=== PATIENT | female | born 1945 | race Caucasian/White ===

== ENCOUNTER → 2016-06-14 06:29 | Day surgery (SDC) | payer MEDICARE ==
[~2016-06-14 06:29] MED LIST: Buffered Lidocaine 1% SYR 3ML* 3 ML/SYR SYRINGE INTRADERM ONE; Buffered Lidocaine 1% SYR 3ML* 3 ML/SYR SYRINGE ONE; DiMENhydriNATE IV* 50 MG/ML VIAL IV PUSH PRN; Famotidine IV* 10 MG/ML 2 ML (20 mg) IV ONE; Famotidine IV* 10 MG/ML 2 ML (20 mg) ONE; Lidocaine 1% INJ* 10 MG/ML 30 ML SDV ONE; Midazolam* 1 MG/ML 5 ML VIAL (5 MG) ONE; Ondansetron INJ* 2 MG/ML VIAL IV PRN; Propofol* 10 MG/ML 20 ML BTL IV PUSH ONE; ceFAZolin 2 GM PREMIX (*) 2 GM/50 ML BAG IVPB ONE; fentaNYL* 50 MCG/ML 2 ML VIAL (100 MCG VIAL) IV PRN; fentaNYL* 50 MCG/ML 2 ML VIAL (100 MCG VIAL) ONE; oxyCODONE/Acetamin 5/325 MG* TAB PO PRN
--- NOTE | 2016-06-14 09:03 | RAD ---
INDICATION: chest port placement COMPARISONS: None relevant TECHNIQUE: Fluoroscopy was provided for a vascular access procedure. Total fluoroscopy time is: 13.5 seconds FINDINGS: Spot images demonstrate a left-sided chest port with the tip overlying the cavoatrial junction IMPRESSION: FLUOROSCOPY WAS PROVIDED FOR A VASCULAR ACCESS PROCEDURE CPT II Codes: 6045F
[2016-06-14 09:16] VITALS: BP 149/67
--- NOTE | 2016-06-14 09:29 | RAD ---
HISTORY: Status post chest port placement COMPARISONS: January 19, 2011 VIEWS:1: Single frontal portable view of the chest at 8:35 AM FINDINGS: LINES AND TUBES: There is left-sided chest port from a superior approach with the tip overlying the cavoatrial junction CARDIOMEDIASTINAL SILHOUETTE: The cardiomediastinal silhouette is normal for portable technique. PLEURA: The costophrenic angles are sharp. No pleural abnormalities are noted. There is no appreciable pneumothorax. LUNG PARENCHYMA: The lungs are clear. ABDOMEN: The upper abdomen is clear. There is no subphrenic gas. BONES AND SOFT TISSUES: The patient is status post right shoulder arthroplasty IMPRESSION: LINES AND TUBES ABOVE. NO ACTIVE CARDIOPULMONARY DISEASE.
--- NOTE | 2016-06-14 23:13 | OP ---
DATE OF OPERATION: 06/14/16 - [facility] DATE OF : 41 SURGEON: Luis Granado MD STRATEGIC PARTNER DEVELOPMENT MANAGER: None. ANESTHESIOLOGIST: Dr. Mendiola. ANESTHESIA: LMAC anesthesia. PRE-OP DIAGNOSIS: Carcinoma of the lung. POST-OP DIAGNOSIS: Carcinoma of the lung. OPERATIVE PROCEDURE: Placement of left subclavian 8-[place]namese PowerPort. DESCRIPTION OF PROCEDURE: The patient was supine on the operative table. After adequate intravenous sedation, compression stockings, Miguel Hugger warmer, intravenous antibiotics, the left chest and neck region were prepped with antiseptic and draped in a sterile fashion. Local infiltrative anesthesia was administered and approximately a 3-cm subclavian incision was created. Inferior pocket was created. Subclavian venipuncture was carried out without difficulty. Guidewire was passed under fluoroscopic guidance. Catheter was passed through the peel-away introducer, measured and cut at 28 cm, attached to the port, which was sutured into the pocket with 2-0 Prolene. Pocket was closed with 3-0 and 5-0 Polysorb. The port was accessed. There was good blood return. It was flushed with saline solution and heparin solution and then covered with a Tegaderm. She tolerated the procedure well and was brought to recovery in good condition. No complications. No drains. No pathologic specimens. Sponge and instrument counts correct. Estimated blood loss 10 mL. CC: Dr. Granado; Dr. Wai Powell; Dr. Barry Bowens * [id number]/CPS #: [id number] [facility]
== END ==
LOC: OR 06:29
PROVIDERS: ATTEND Surgery
DX: C34.32 Malignant neoplasm of lower lobe, left bronchus or lung (principal); F17.210 Nicotine dependence, cigarettes, uncomplicated; Z85.841 Personal history of malignant neoplasm of brain; Z85.830 Personal history of malignant neoplasm of bone; Z85.820 Personal history of malignant melanoma of skin
CPT/HCPCS: 71010; 96367; 96413; 96417; 99213; C1788; G0463; G8427; J0690; J1100; J1642; J2250; J2469; J2704; J3010; J9045; J9181

== ENCOUNTER 2016-09-01 13:28 | Inpatient (IN) | payer MEDICARE ==
[2016-09-01] MEDS ORDERED: Scopolamine 1.5 mg* PATCH TRANSDERM SCH (14:00)
[2016-09-01] MEDS ORDERED: Acetaminophen TAB* 325 MG PO PRN (14:47)
[2016-09-01] MEDS ORDERED: NS 0.9% 1000 ML* 1,000 ML IV SCH (15:00)
[2016-09-01] MEDS: oxyCODONE TAB* 5 MG TAB PO PRN (15:27)
--- NOTE | 2016-09-01 16:34 | RAD ---
INDICATION: Constipation COMPARISON: CT chest/abdomen/pelvis August 23, 2016 TECHNIQUE: Noncontrast axial source images were acquired from the level hemidiaphragms to the symphysis pubis. The examination was ordered without oral or intravenous contrast which limits evaluation of the solid viscera and bowel. There is a recent contrast enhanced study, however. Lung bases: There are multiple lung masses as described on the recent contrast recent examination. Liver: The liver is normal in size. Noncontrast imaging multiple hepatic masses better evaluated on the recent contrast-enhanced study. Gallbladder: Cholecystectomy. Spleen: The spleen is normal in size. The noncontrast CT appearance is normal. Pancreas: Noncontrast imaging shows no pancreatic mass or ductal dilitation. Adrenal glands: No masses are identified. Kidneys/Bladder: There is a small right renal cyst. There is right-sided hydronephrosis and hydroureter which appears new and may be related to a markedly distended urinary bladder. There is mild dilatation of the left renal collecting system Adenopathy: There is no evidence of intraperitoneal or retroperitoneal adenopathy. Evaluation is limited without oral contrast. Fluid collections: There are no free or localized fluid collections. Vessels: There are atherosclerotic changes of the aorta and iliac vessels. There is no focal aneurysm. The IVC appears normal Pelvic organs: The uterus and adnexa appear normal GI tract: The noncontrast CT appearance of the upper GI tract is unremarkable. There is moderate stool with mild distention of the right and transverse colon. There is a distended stool-filled rectum. Soft tissues: No soft tissue abnormalities of the extraperitoneal abdomen or pelvis are identified. Osseous structures: Extensive osteolytic and osteoblastic metastasis as recently described. IMPRESSION: 1. Large amount of retained stool with distention of the rectal vault. 2. Known metastatic disease to the lungs, liver, and osseous structures. This is recently documented on contrast enhanced imaging. 3. Significant distention of the urinary bladder. If the patient is unable to void a Christy catheter will likely be required. There is hydronephrosis right greater than left which is likely related to the bladder distention.
[2016-09-01] MEDS ORDERED: Warfarin TAB(*) 5 MG PO SCH (17:00)
[2016-09-01] MEDS ORDERED: Diltiazem IV VIAL* 125 MG in D5W 100 ML BAG* 100 ML IV ONE (17:27)
[2016-09-01] MEDS ORDERED: Diltiazem DRIP* 100 MG/100 ML ADDV.BAG IVPB ONE (18:00)
[2016-09-01 19:30] LABS: BUN/Creatinine Ratio 17.3 (8-20); Calcium 7.4 mg/dL (8.6-10.3); EGFR African American 149.1 (>60); EGFR Non-African American 115.9 (>60); Globulin 2.7 g/dL (2-4); Potassium 3.7 mmol/L (3.5-5.0); Total Bilirubin 0.6 mg/dL (0.2-1.0); Total Protein 5.7 g/dL (6.4-8.9)
[2016-09-01] MEDS: Morphine TAB Extended Release (*) 30 MG TAB.ER PO SCH (20:46)
[2016-09-01] MEDS: NS 0.9% 1000 ML* 1,000 ML IV SCH (20:47)
[2016-09-01] MEDS ORDERED: Hemorrhoidal SUPP PR ONE (23:30)
[2016-09-01] MEDS ORDERED: Lidocaine 2% JELLY* 6 ML JELLY TOPICAL ONE (23:30)
[2016-09-02] MEDS: LACTULOSE* 30 ML UDC PO PRN ×2 (00:54→22:04)
[2016-09-02] MEDS: oxyCODONE TAB* 5 MG TAB PO PRN ×2 (00:54→15:03)
[2016-09-02] MEDS: Diltiazem DRIP* 100 MG/100 ML ADDV.BAG IVPB SCH ×3 (01:00→16:11)
[2016-09-02] MEDS: NS 0.9% 1000 ML* 1,000 ML IV SCH ×2 (05:50→18:12)
[2016-09-02 08:10] LABS: BUN/Creatinine Ratio 12.7 (8-20); Calcium 7.2 mg/dL (8.6-10.3); EGFR African American 139.7 (>60); EGFR Non-African American 108.6 (>60); Globulin 2.7 g/dL (2-4); Potassium 3.5 mmol/L (3.5-5.0); Total Bilirubin 0.6 mg/dL (0.2-1.0); Total Protein 5.7 g/dL (6.4-8.9)
[2016-09-02 08:19] LABS: Hematocrit 28 % (35-47); Hemoglobin 9.4 g/dl (12.0-16.0); Mean Corpuscular HGB Conc 34 g/dl (31-36); Mean Corpuscular Hemoglobin 33 pg (27-31); Mean Corpuscular Volume 96 fL (80-97); Mean Platelet Volume 8 um3 (7.4-10.4); Red Blood Count 2.89 10^6/ul (4.0-5.4); Red Cell Distribution Width 19 % (10.5-15); White Blood Count 4.5 10^3/ul (3.5-10.8)
[2016-09-02 08:24] LABS: Comments Flag Yes
[2016-09-02 08:25] LABS: Add Diff/Slide Review? Slide Review Added
[2016-09-02] MEDS: Morphine TAB Extended Release (*) 30 MG TAB.ER PO SCH ×3 (09:12→22:03)
[2016-09-02] MEDS: Docusate CAP* 100 MG PO PRN ×3 (09:14→22:03)
[2016-09-02] MEDS: Dexamethasone TAB* 4 MG PO SCH ×2 (09:14→12:50)
[2016-09-02] MEDS: Senna TAB PO PRN ×3 (09:14→22:03)
[2016-09-02 09:46] LABS: Eosinophils % 1 % (0-6); Immature Granulocytes 7 % (0-9); Metamyelocytes % 5 % (0-2); Myelocytes % 2 % (0-1); Neutrophil % 69 % (38-83)
[2016-09-02 09:47] LABS: Macrocytosis 2+; Microcytosis 1+
[2016-09-02] MEDS ORDERED: Bisacodyl SUPP* 10 MG SUPP PR ONE (11:15)
--- NOTE | 2016-09-02 11:50 | PN ---
Progress Note - Progress Note SOAP: Subjective: [] test note Acetaminophen (Tylenol Tab*) 650 mg PO Q6H PRN PRN Reason: TEMP > 100.5 Dexamethasone (Decadron Tab*) 4 mg PO DAILY [facility] Docusate Sodium (Colace Cap*) 200 mg PO BID PRN PRN Reason: CONSTIPATION Sodium Chloride (Ns 0.9% 1000 Ml*) 1,000 mls @ 80 mls/hr IV PER RATE BONNIE Diltiazem HCl (Cardizem Iv Advan*) 100 mg in 100 mls @ 10 mls/hr IVPB .PER RATE BONNIE; 10 MG/HR PRN Reason: Protocol Lactulose (Lactulose*) 30 ml PO TID PRN PRN Reason: CONSTIPATION Last Admin: 09/02/16 00:54 Dose: 30 ml Lorazepam (Ativan Tab(*)) 0.5 mg PO TID PRN PRN Reason: NAUSEA Methylnaltrexone [place] (Relistor Sq (Nf)) 12 mg SUBCUT ONCE ONE PRN Reason: Protocol Stop: 09/03/16 12:01 Metoprolol Tartrate (Lopressor Tab*) 25 mg PO Q6H [facility] Morphine Sulfate (Ms Contin(*)) 30 mg PO BID BON[facility] Last Admin: 09/01/16 20:46 Dose: 30 mg Oxycodone HCl (Roxycodone Tab*) 5 mg PO Q4H PRN PRN Reason: PAIN Last Admin: 09/02/16 00:54 Dose: 5 mg Pharmacy Profile Note (Scopolomine Patch Remove*) 1 note PATCH OFF Q72H BON[facility]IE Scopolamine (Transderm-Scop 1.5 Mg Patch*) 1 patch TRANSDERM Q72H [facility] Senna (Senokot Tab*) 2 tab PO BID PRN PRN Reason: CONSTIPATION Warfarin Sodium (Coumadin Tab(*)) 5 mg PO DAILY@1700 BONNIE PRN Reason: Protocol Objective: [] Vital Signs Temp Pulse Resp BP Pulse Ox 98.6 F 142 14 96/61 97 09/02/16 07:46 09/02/16 01:00 09/02/16 08:00 09/02/16 08:00 09/02/16 01:00 Assessment: [] dfd Plan: [] zvc
[2016-09-02] MEDS: Metoprolol Tartrate TAB* 25 MG PO SCH ×2 (12:51→18:20)
[2016-09-02] MEDS: LORazepam TAB(*) 0.5 MG PO PRN (15:02)
[2016-09-02] MEDS: Warfarin TAB(*) 5 MG PO SCH (18:20)
--- NOTE | 2016-09-02 18:54 | PN ---
Progress Note - Progress Note SOAP: Subjective: []Doing poorly with continued constipation and abdominal pain. Not eating. Developed rapid a-fib yesterday and placed on Cardizem drip. She is on Coumadin for prior DVT. Acetaminophen (Tylenol Tab*) 650 mg PO Q6H PRN PRN Reason: TEMP > 100.5 Dexamethasone (Decadron Tab*) 4 mg PO DAILY [facility] Last Admin: 09/02/16 12:50 Dose: 4 mg Docusate Sodium (Colace Cap*) 200 mg PO BID PRN PRN Reason: CONSTIPATION Sodium Chloride (Ns 0.9% 1000 Ml*) 1,000 mls @ 80 mls/hr IV PER RATE BONNIE Last Admin: 09/02/16 18:12 Dose: 80 mls/hr Diltiazem HCl (Cardizem Iv Advan*) 100 mg in 100 mls @ 10 mls/hr IVPB .PER RATE BONNIE; 10 MG/HR PRN Reason: Protocol Last Admin: 09/02/16 16:11 Dose: 10 mls/hr Lactulose (Lactulose*) 30 ml PO TID PRN PRN Reason: CONSTIPATION Last Admin: 09/02/16 00:54 Dose: 30 ml Lorazepam (Ativan Tab(*)) 0.5 mg PO TID PRN PRN Reason: NAUSEA Last Admin: 09/02/16 15:02 Dose: 0.5 mg Methylnaltrexone [place] (Relistor Sq (Nf)) 12 mg SUBCUT ONCE ONE PRN Reason: Protocol Stop: 09/03/16 12:01 Metoprolol Tartrate (Lopressor Tab*) 25 mg PO Q6H [facility] Last Admin: 09/02/16 18:20 Dose: 25 mg Morphine Sulfate (Ms Contin(*)) 30 mg PO BID [facility] Last Admin: 09/02/16 12:49 Dose: 30 mg Oxycodone HCl (Roxycodone Tab*) 5 mg PO Q4H PRN PRN Reason: PAIN Last Admin: 09/02/16 15:03 Dose: 5 mg Pharmacy Profile Note (Scopolomine Patch Remove*) 1 note PATCH OFF Q72H [facility] Scopolamine (Transderm-Scop 1.5 Mg Patch*) 1 patch TRANSDERM Q72H [facility] Senna (Senokot Tab*) 2 tab PO BID PRN PRN Reason: CONSTIPATION Last Admin: 09/02/16 12:51 Dose: 1 tab Warfarin Sodium (Coumadin Tab(*)) 5 mg PO DAILY@1700 BONNIE PRN Reason: Protocol Last Admin: 09/02/16 18:20 Dose: 5 mg Objective: [] Vital Signs Temp Pulse Resp BP Pulse Ox 98.6 F 111 16 105/72 94 09/02/16 07:46 09/02/16 14:00 09/02/16 17:03 09/02/16 10:00 09/02/16 14:00 HEENT - pale, no thrush, dry mucosa CTA Tachy and irregular, 110 Distended, has BS, soft but diffuse tenderness. Rectal with rectal tone, soft stool, soft hemorrhoids. 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 Several issues today. Plan: []1. Discussed larger picture. While the CT has been stable, she has had clear clinical deterioration and has suffered from poor quality of life since we started treatment. I think chemotherapy is doing more harm then good and we should stop treatment. The daughter if very resistant, she does not want to give up without a second opinion. Through conversation, she became more open to Hospice and agreed to talk to the family. 2. A-fib. Will start Metoprolol and titrate off Cardizem drip. 3. Constipation. Will continue Lactulose, Fleets and if no BM, add suppository. Order methylmaltrexone for tomorrow.
[2016-09-02] MEDS ORDERED: Metoprolol Tartrate IV* 1 MG/ML 5 ML VIAL IV ONE (19:29)
[2016-09-02] MEDS ORDERED: Gadoteridol* (CONTRAST) 279.3 MG/ML 10 ML IV ONE (20:32)
[2016-09-03] MEDS: Metoprolol Tartrate TAB* 25 MG PO SCH ×5 (00:45→22:50)
[2016-09-03] MEDS: Diltiazem DRIP* 100 MG/100 ML ADDV.BAG IVPB SCH (04:54)
[2016-09-03] MEDS: LORazepam TAB(*) 0.5 MG PO PRN (06:12)
--- NOTE | 2016-09-03 07:32 | RAD ---
HISTORY: Urinary retention, lung cancer COMPARISONS: None TECHNIQUE: The following sequences were obtained of the lumbar spine: Sagittal and axial T1- and T2-weighted images, coronal T2-weighted images, and sagittal STIR images. Additionally, axial and sagittal T1 weighted images were obtained after contrast enhancement with a gadolinium-based intravenous contrast agent.. FINDINGS: SPINAL CORD, CONUS, AND CAUDA EQUINA: There is asymmetric enhancement along the left S1 nerve root best seen on axial image 21 of series 4 and sagittal image 8 series 3 ALIGNMENT: There is a levoscoliotic curvature of the spine VERTEBRAL BODIES: There are numerable enhancing lesions throughout the axial skeleton. The vertebral bodies are preserved in height. There is no significant epidural extension. There is near complete replacement of the S2 vertebral body. The patient appears to be status post laminectomy at L5-S1. JOINTS: There is diffuse facet osteoarthritic change MUSCULATURE: There is fatty atrophy of the caudal extent of the right multifidus muscle. There is mild atrophy of the paraspinal musculature elsewhere INTERVERTEBRAL DISCS: There is diffuse loss of intervertebral disc height and T2 signal throughout the spine. AXIAL IMAGES: T12-L1: There is no disc herniation, spinal stenosis, or neuroforaminal narrowing. L1-L2: There is no disc herniation, spinal stenosis, or neuroforaminal narrowing. L2-L3: There is no disc herniation, spinal stenosis, or neuroforaminal narrowing. L3-L4: There is bilateral facet hypertrophy. There is no significant neural foraminal narrowing or central canal stenosis. L4-L5: There is broad-based disc bulge at bilateral facet hypertrophy. There is moderate bilateral neural foraminal narrowing. There is mild narrowing of central canal. L5-S1: A laminectomy defect is noted. There is no significant neural foraminal narrowing or central canal stenosis. SOFT TISSUES: There are multiple hepatic lesions are seen on coronal images. Renal cysts are noted. OTHER: None. IMPRESSION: 1. THERE ARE IN NUMERABLE ENHANCING LESIONS THROUGHOUT THE AXIAL SKELETON CONSISTENT WITH DIFFUSE OSSEOUS METASTATIC DISEASE. THERE IS NEAR COMPLETE REPLACEMENT OF THE CHEST TUBE VERTEBRAL BODY. THERE IS NO EPIDURAL EXTENSION OR LOSS OF VERTEBRAL BODY HEIGHT . 2. THERE IS ASYMMETRIC ENHANCEMENT OF THE LEFT S1 NERVE ROOT WHICH MAY REFLECT EXTENSION OF TUMOR INTO THE NERVE ROOT. 3. DEGENERATIVE DISC DISEASE AND OSTEOARTHRITIS. THERE IS MILD NARROWING OF THE CENTRAL CANAL AT L4-L5 WITH ASSOCIATED NEURAL FORAMINAL NARROWING. 4. MULTIPLE HEPATIC PARENCHYMAL LESIONS ALSO CONSISTENT WITH METASTATIC DISEASE.
--- NOTE | 2016-09-03 07:36 | RAD ---
HISTORY: Lung cancer, urinary retention COMPARISONS: None TECHNIQUE: The following sequences were obtained of the thoracic spine: Sagittal and axial T1- and T2-weighted images, coronal T2-weighted images, and sagittal STIR images. Additionally, axial and sagittal T1 weighted images were obtained after contrast enhancement with a gadolinium-based intravenous contrast agent.. FINDINGS: Localization is based on counting from C2 SPINAL CORD, CONUS, AND CAUDA EQUINA: The visualized spinal cord, conus, and cauda equina are normal in caliber, position, and signal intensity. ALIGNMENT: The alignment is normal. VERTEBRAL BODIES: There are innumerable enhancing lesions throughout the visualized axial skeleton diffuse osseous metastatic disease. There is no loss of intervertebral body height. There is no epidural extension. There are Modic 2 reactive changes of the midthoracic spine. JOINTS: There is osteoarthritis of the costovertebral articulations. MUSCULATURE: Unremarkable INTERVERTEBRAL DISCS: There is diffuse loss of intervertebral disc height and T2 signal throughout the spine. AXIAL IMAGES: There is no central canal stenosis or neuroforaminal narrowing. SOFT TISSUES: The hepatic parenchymal lesions consistent with metastatic disease to the liver. OTHER: None. IMPRESSION: 1. THERE IS DIFFUSE OSSEOUS METASTATIC DISEASE WITHOUT LOSS OF VERTEBRAL BODY HEIGHT OR EPIDURAL EXTENSION OF TUMOR. 2. DEGENERATIVE DISC DISEASE AND OSTEOARTHRITIS. 3. THERE IS NO SIGNIFICANT NEURAL FORAMINAL NARROWING OR CENTRAL CANAL STENOSIS. 4. THERE ARE ENHANCING LESIONS OF THE LIVER CONSISTENT WITH HEPATIC METASTATIC DISEASE.
[2016-09-03] MEDS: Morphine TAB Extended Release (*) 30 MG TAB.ER PO SCH ×2 (09:40→20:32)
[2016-09-03] MEDS: NS 0.9% 1000 ML* 1,000 ML IV SCH (09:40)
[2016-09-03] MEDS: Dexamethasone TAB* 4 MG PO SCH (09:41)
--- NOTE | 2016-09-03 10:03 | PN ---
Progress Note - Progress Note SOAP: Subjective: []Better. Less pain. Has marte in. Small BM but not much. She is eating some. Acetaminophen (Tylenol Tab*) 650 mg PO Q6H PRN PRN Reason: TEMP > 100.5 Dexamethasone (Decadron Tab*) 4 mg PO DAILY BONN[facility] Last Admin: 09/03/16 09:41 Dose: 4 mg Docusate Sodium (Colace Cap*) 200 mg PO BID PRN PRN Reason: CONSTIPATION Last Admin: 09/02/16 22:03 Dose: 200 mg Sodium Chloride (Ns 0.9% 1000 Ml*) 1,000 mls @ 80 mls/hr IV PER RATE BONNIE Last Admin: 09/03/16 09:40 Dose: 80 mls/hr Diltiazem HCl (Cardizem Iv Advan*) 100 mg in 100 mls @ 10 mls/hr IVPB .PER RATE BONNIE; 10 MG/HR PRN Reason: Protocol Last Admin: 09/03/16 04:54 Dose: 10 mls/hr Lactulose (Lactulose*) 30 ml PO TID PRN PRN Reason: CONSTIPATION Last Admin: 09/02/16 22:04 Dose: 30 ml Lorazepam (Ativan Tab(*)) 0.5 mg PO TID PRN PRN Reason: NAUSEA Last Admin: 09/03/16 06:12 Dose: 0.5 mg Methylnaltrexone [place] (Relistor Sq (Nf)) 12 mg SUBCUT ONCE ONE PRN Reason: Protocol Stop: 09/03/16 12:01 Metoprolol Tartrate (Lopressor Tab*) 25 mg PO Q6H [facility] Last Admin: 09/03/16 06:02 Dose: 25 mg Morphine Sulfate (Ms Contin(*)) 30 mg PO BID BONNIE Last Admin: 09/03/16 09:40 Dose: 30 mg Oxycodone HCl (Roxycodone Tab*) 5 mg PO Q4H PRN PRN Reason: PAIN Last Admin: 09/02/16 15:03 Dose: 5 mg Pharmacy Profile Note (Scopolomine Patch Remove*) 1 note PATCH OFF Q72H BON[facility] Scopolamine (Transderm-Scop 1.5 Mg Patch*) 1 patch TRANSDERM Q72H [facility] Senna (Senokot Tab*) 2 tab PO BID PRN PRN Reason: CONSTIPATION Last Admin: 09/02/16 22:03 Dose: 2 tab Warfarin Sodium (Coumadin Tab(*)) 5 mg PO DAILY@1700 BONNIE PRN Reason: Protocol Last Admin: 09/02/16 18:20 Dose: 5 mg Objective: [] Vital Signs Temp Pulse Resp BP Pulse Ox 98.6 F 99 16 97/64 92 09/03/16 03:58 09/03/16 06:00 09/03/16 09:40 09/03/16 06:00 09/03/16 06:00 HEENT - pale, no thrush, dry mucosa CTA Tachy and irregular, 110 Distended, has BS, soft but diffuse tenderness. Marte, yellow urine. 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 Several issues today. Plan: []1. Discussed larger picture. Family is coming in this weekend. Will work and functional improvment over weekend and see where we are on Tuesday. Family meeting and will discuss hospice. 2. A-fib. Continue Metoprolol, d/c monitor. 3. Constipation. Will continue Lactulose, methylmaltrexone today and follow 4. Discussed DNR.DNI 5. PT/OT
[2016-09-03] MEDS: Scopolamine 1.5 mg* PATCH TRANSDERM SCH (11:53)
[2016-09-03] MEDS ORDERED: Methylnaltrexone SQ (NF) 12 MG/0.6 ML VIAL SUBCUT ONE (12:00)
[2016-09-03] MEDS: Scopolomine PATCH Remove* 1 NOTE MISC PATCH OFF SCH (13:45)
[2016-09-03] MEDS: Warfarin TAB(*) 5 MG PO SCH (16:31)
[2016-09-03] MEDS: Senna TAB PO PRN (20:32)
[2016-09-03] MEDS: Docusate CAP* 100 MG PO PRN (20:32)
[2016-09-03] MEDS: oxyCODONE TAB* 5 MG TAB PO PRN (22:50)
[2016-09-04] MEDS: Metoprolol Tartrate TAB* 25 MG PO SCH ×4 (05:57→23:36)
[2016-09-04 06:29] LABS: Hematocrit 28 % (35-47); Hemoglobin 9.4 g/dl (12.0-16.0); Mean Corpuscular HGB Conc 34 g/dl (31-36); Mean Corpuscular Hemoglobin 32 pg (27-31); Mean Corpuscular Volume 96 fL (80-97); Mean Platelet Volume 8 um3 (7.4-10.4); Red Blood Count 2.94 10^6/ul (4.0-5.4); Red Cell Distribution Width 20 % (10.5-15)
[2016-09-04 06:48] LABS: Add Diff/Slide Review? Slide Review Added; Comments Flag Yes
[2016-09-04 06:51] LABS: Albumin 2.9 g/dL (3.2-5.2); BUN/Creatinine Ratio 16.1 (8-20); Calcium 7.5 mg/dL (8.6-10.3); EGFR African American 136.9 (>60); EGFR Non-African American 106.4 (>60); Globulin 2.7 g/dL (2-4); Potassium 3.9 mmol/L (3.5-5.0); Total Bilirubin 0.4 mg/dL (0.2-1.0); Total Protein 5.6 g/dL (6.4-8.9)
--- NOTE | 2016-09-04 08:12 | PN ---
Progress Note - Progress Note SOAP: Subjective: []Better today. She had BM yesterday after injection. Pain is controlled. Worked with PT and has exercises. She is unsure about if she is accepting palliative care and decided to change back to full code yesterday. Acetaminophen (Tylenol Tab*) 650 mg PO Q6H PRN PRN Reason: TEMP > 100.5 Dexamethasone (Decadron Tab*) 4 mg PO DAILY [facility] Last Admin: 09/03/16 09:41 Dose: 4 mg Docusate Sodium (Colace Cap*) 200 mg PO BID PRN PRN Reason: CONSTIPATION Last Admin: 09/03/16 20:32 Dose: 200 mg Lactulose (Lactulose*) 30 ml PO TID PRN PRN Reason: CONSTIPATION Last Admin: 09/02/16 22:04 Dose: 30 ml Lorazepam (Ativan Tab(*)) 0.5 mg PO TID PRN PRN Reason: NAUSEA Last Admin: 09/03/16 06:12 Dose: 0.5 mg Metoprolol Tartrate (Lopressor Tab*) 25 mg PO Q6H [facility] Last Admin: 09/04/16 05:57 Dose: 25 mg Morphine Sulfate (Ms Contin(*)) 30 mg PO BID [facility] Last Admin: 09/03/16 20:32 Dose: 30 mg Oxycodone HCl (Roxycodone Tab*) 5 mg PO Q4H PRN PRN Reason: PAIN Last Admin: 09/03/16 22:50 Dose: 5 mg Pharmacy Profile Note (Scopolomine Patch Remove*) 1 note PATCH OFF Q72H [facility] Last Admin: 09/03/16 13:45 Dose: Not Given Scopolamine (Transderm-Scop 1.5 Mg Patch*) 1 patch TRANSDERM Q72H [facility] Last Admin: 09/03/16 11:53 Dose: 1 patch Senna (Senokot Tab*) 2 tab PO BID PRN PRN Reason: CONSTIPATION Last Admin: 09/03/16 20:32 Dose: 2 tab Warfarin Sodium (Coumadin Tab(*)) 5 mg PO DAILY@1700 BONNIE PRN Reason: Protocol Last Admin: 09/03/16 16:31 Dose: 5 mg Objective: [] Vital Signs Temp Pulse Resp BP Pulse Ox 98.4 F 107 18 113/67 97 09/04/16 04:07 09/04/16 04:07 09/04/16 06:18 09/04/16 04:07 09/04/16 04:07 HEENT - pale, no thrush, dry mucosa CTA Tachy and irregular, 110 Abd-better and less distended, has BS, soft but diffuse tenderness. Rectal with rectal tone, soft stool, soft hemorrhoids. 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 Plan: []1. SSLC. While the CT has been stable, she has had clear clinical deterioration and has suffered from poor quality of life since we started treatment. I think chemotherapy is doing more harm then good and we should stop treatment. She is still resistant to hospice. Planning family meeting on Tuesday to discuss palliative care. She does not want to be DNR despite explanation of process and poor outcomes from resuscitation. 2. A-fib. Will continue Metoprolol, Digoxin with conservative dose of 0.75 mg today and 0.125 mg daily starting tomorrow. 3. Constipation. Better, continue Lactulose.
[2016-09-04 08:15] LABS: Immature Granulocytes 12 % (0-9); Metamyelocytes % 7 % (0-2); Myelocytes % 1 % (0-1); Neutrophil % 73 % (38-83); Reactive Lymph % 1 % (0-6)
[2016-09-04 08:16] LABS: Polychromasia 1+
[2016-09-04] MEDS: Digoxin TAB* 0.25 MG PO SCH ×2 (08:51→17:17)
[2016-09-04] MEDS: Morphine TAB Extended Release (*) 30 MG TAB.ER PO SCH ×2 (08:51→21:11)
[2016-09-04] MEDS: Dexamethasone TAB* 4 MG PO SCH (08:52)
[2016-09-04] MEDS: Docusate CAP* 100 MG PO PRN ×2 (10:58→21:11)
[2016-09-04] MEDS: Senna TAB PO PRN ×2 (10:58→21:11)
[2016-09-04] MEDS: LACTULOSE* 30 ML UDC PO PRN (14:38)
[2016-09-04] MEDS: LACTULOSE* 30 ML UDC PO SCH ×2 (17:17→21:11)
[2016-09-04] MEDS: Warfarin TAB(*) 5 MG PO SCH (17:18)
[2016-09-04] MEDS: oxyCODONE TAB* 5 MG TAB PO PRN (21:47)
[2016-09-05] MEDS: Digoxin TAB* 0.25 MG PO SCH (01:17)
[2016-09-05] MEDS: Metoprolol Tartrate TAB* 25 MG PO SCH ×3 (06:08→17:13)
[2016-09-05] MEDS: oxyCODONE TAB* 5 MG TAB PO PRN (06:10)
[2016-09-05 06:22] LABS: Hematocrit 32 % (35-47); Hemoglobin 10.8 g/dl (12.0-16.0); Mean Corpuscular HGB Conc 34 g/dl (31-36); Mean Corpuscular Hemoglobin 32 pg (27-31); Mean Corpuscular Volume 96 fL (80-97); Mean Platelet Volume 7 um3 (7.4-10.4); Red Blood Count 3.33 10^6/ul (4.0-5.4); Red Cell Distribution Width 20 % (10.5-15); White Blood Count 11.6 10^3/ul (3.5-10.8)
[2016-09-05 06:38] LABS: BUN/Creatinine Ratio 14.3 (8-20); Calcium 7.5 mg/dL (8.6-10.3); EGFR African American 159.7 (>60); EGFR Non-African American 124.1 (>60); Globulin 3.1 g/dL (2-4); Potassium 3.6 mmol/L (3.5-5.0); Total Bilirubin 0.5 mg/dL (0.2-1.0); Total Protein 6.1 g/dL (6.4-8.9)
[2016-09-05] MEDS: Senna TAB PO PRN (07:49)
[2016-09-05] MEDS: Morphine TAB Extended Release (*) 30 MG TAB.ER PO SCH ×4 (07:49→20:36)
[2016-09-05] MEDS: Docusate CAP* 100 MG PO PRN (07:49)
[2016-09-05] MEDS: Dexamethasone TAB* 4 MG PO SCH (07:50)
[2016-09-05] MEDS: LACTULOSE* 30 ML UDC PO SCH ×4 (07:51→20:42)
--- NOTE | 2016-09-05 08:45 | PN ---
Progress Note - Progress Note SOAP: Subjective: []More pain overnight. Walked around during day and had a good day. Had a BM and felt better. Then overnight more pain. Sever overnight. Today still in pain. Lower back and down leg. Acetaminophen (Tylenol Tab*) 650 mg PO Q6H PRN PRN Reason: TEMP > 100.5 Dexamethasone (Decadron Tab*) 4 mg PO DAILY [facility] Last Admin: 09/05/16 07:50 Dose: 4 mg Digoxin (Lanoxin Tab*) 0.125 mg PO 1700 [facility] Docusate Sodium (Colace Cap*) 200 mg PO BID PRN PRN Reason: CONSTIPATION Last Admin: 09/05/16 07:49 Dose: 200 mg Lactulose (Lactulose*) 30 ml PO TID [facility] Last Admin: 09/05/16 07:51 Dose: 30 ml Lorazepam (Ativan Tab(*)) 0.5 mg PO TID PRN PRN Reason: NAUSEA Last Admin: 09/03/16 06:12 Dose: 0.5 mg Metoprolol Tartrate (Lopressor Tab*) 25 mg PO Q6H [facility] Last Admin: 09/05/16 06:08 Dose: 25 mg Morphine Sulfate (Ms Contin(*)) 30 mg PO BID [facility] Last Admin: 09/05/16 07:49 Dose: 30 mg Oxycodone HCl (Roxycodone Tab*) 5 mg PO Q4H PRN PRN Reason: PAIN Last Admin: 09/05/16 06:10 Dose: 5 mg Pharmacy Profile Note (Scopolomine Patch Remove*) 1 note PATCH OFF Q72H [facility] Last Admin: 09/03/16 13:45 Dose: Not Given Scopolamine (Transderm-Scop 1.5 Mg Patch*) 1 patch TRANSDERM Q72H [facility] Last Admin: 09/03/16 11:53 Dose: 1 patch Senna (Senokot Tab*) 2 tab PO BID PRN PRN Reason: CONSTIPATION Last Admin: 09/05/16 07:49 Dose: 2 tab Warfarin Sodium (Coumadin Tab(*)) 5 mg PO DAILY@1700 BONNIE PRN Reason: Protocol Last Admin: 09/04/16 17:18 Dose: 5 mg Objective: [] Vital Signs Temp Pulse Resp BP Pulse Ox 98.0 F 63 18 140/72 100 09/05/16 08:12 09/05/16 08:12 09/05/16 08:12 09/05/16 08:12 09/05/16 08:12 HEENT - pale, no thrush, dry mucosa CTA Tachy and irregular, 110 Abd-better and less distended, has BS, soft but diffuse tenderness. 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 Now has rate control with Metoprolol and Digoxin. Christy in place and has regular BM on Lactulose. Plan: []1. SSLC. While the CT has been stable, she has had clear clinical deterioration and has suffered from poor quality of life since we started treatment. I think chemotherapy is doing more harm then good and we should stop treatment. She is still resistant to hospice. Planning family meeting tomorrow to discuss palliative care. She does not want to be DNR despite explanation of process and poor outcomes from resuscitation. 2. A-fib. Will continue Metoprolol, Digoxin with conservative dose 0.125 mg daily starting today 3. Constipation. Better, continue Lactulose. 4. Pain. Will increase Morphine ER to 30 mg tid, increase Oxycodone to 10 mg q3 prn.
[2016-09-05] MEDS ORDERED: Ondansetron INJ* 2 MG/ML VIAL ONE (09:46)
[2016-09-05] MEDS ORDERED: Ondansetron INJ* 2 MG/ML VIAL IV PRN (09:53)
[2016-09-05] MEDS: Morphine INJ* 2 MG/ML 1 ML SYRINGE IV PRN (10:53)
[2016-09-05] MEDS: Digoxin TAB* 0.125 MG PO SCH (17:13)
[2016-09-05] MEDS: Warfarin TAB(*) 5 MG PO SCH (17:13)
[2016-09-06] MEDS: Metoprolol Tartrate TAB* 25 MG PO SCH ×4 (00:14→19:21)
[2016-09-06] MEDS: LORazepam TAB(*) 0.5 MG PO PRN (00:15)
[2016-09-06] MEDS: oxyCODONE TAB* 5 MG TAB PO PRN (06:02)
[2016-09-06] MEDS: LACTULOSE* 30 ML UDC PO SCH (08:39)
[2016-09-06] MEDS: Dexamethasone TAB* 4 MG PO SCH (08:40)
[2016-09-06] MEDS: Morphine TAB Extended Release (*) 30 MG TAB.ER PO SCH ×3 (08:40→21:16)
--- NOTE | 2016-09-06 09:52 | PN ---
Progress Note - Progress Note SOAP: Subjective: []Pain better controlled with increased medication. Continues to have BM but is not tolerating Lactulose. Family meeting today. Acetaminophen (Tylenol Tab*) 650 mg PO Q6H PRN PRN Reason: TEMP > 100.5 Dexamethasone (Decadron Tab*) 4 mg PO DAILY [facility] Last Admin: 09/06/16 08:40 Dose: 4 mg Digoxin (Lanoxin Tab*) 0.125 mg PO 1700 [facility] Last Admin: 09/05/16 17:13 Dose: 0.125 mg Docusate Sodium (Colace Cap*) 200 mg PO BID PRN PRN Reason: CONSTIPATION Last Admin: 09/05/16 07:49 Dose: 200 mg Heparin Sodium (Porcine) (Heparin Flush Port (Ivad)) 5 ml FLUSH DAILY [facility] PRN Reason: Protocol Lactulose (Lactulose*) 30 ml PO TID [facility] Last Admin: 09/06/16 08:39 Dose: 30 ml Lorazepam (Ativan Tab(*)) 0.5 mg PO TID PRN PRN Reason: NAUSEA Last Admin: 09/06/16 00:15 Dose: 0.5 mg Metoprolol Tartrate (Lopressor Tab*) 25 mg PO Q6H [facility] Last Admin: 09/06/16 06:02 Dose: 25 mg Morphine Sulfate (Ms Contin(*)) 30 mg PO TID [facility] Last Admin: 09/06/16 08:40 Dose: 30 mg Morphine Sulfate (Morphine Inj (Syringe)*) 2 mg IV Q3H PRN PRN Reason: PAIN Last Admin: 09/05/16 10:53 Dose: 2 mg Ondansetron HCl (Zofran Inj*) 8 mg IV Q8H PRN PRN Reason: NAUSEA Last Admin: 09/05/16 10:01 Dose: 8 mg Oxycodone HCl (Roxycodone Tab*) 10 mg PO Q3H PRN PRN Reason: PAIN Last Admin: 09/06/16 06:02 Dose: 10 mg Pharmacy Profile Note (Scopolomine Patch Remove*) 1 note PATCH OFF Q72H [facility] Last Admin: 09/03/16 13:45 Dose: Not Given Scopolamine (Transderm-Scop 1.5 Mg Patch*) 1 patch TRANSDERM Q72H [facility] Last Admin: 09/03/16 11:53 Dose: 1 patch Senna (Senokot Tab*) 2 tab PO BID PRN PRN Reason: CONSTIPATION Last Admin: 09/05/16 07:49 Dose: 2 tab Warfarin Sodium (Coumadin Tab(*)) 5 mg PO DAILY@1700 [facility] PRN Reason: Protocol Last Admin: 09/05/16 17:13 Dose: 5 mg Objective: [] Vital Signs Temp Pulse Resp BP Pulse Ox 98.4 F 108 18 119/67 100 09/06/16 08:07 09/06/16 08:07 09/06/16 08:40 09/06/16 08:07 09/06/16 08:07 HEENT - mucosa moist, no lesions Crackles at bases, no distress, no wheezing Heart is irregular at 100-110 +BS, NT and ND Ext w/o c/c/e Assessment: []70 year old with SSLC who is status post cycle 2 of second line chemotherapy with Topotecan. No response. Family meeting today and covered following points: - Cancer has not responded to 2 consecutive chemotherapy regimens. I feel chemotherapy is doing more harm then good and she should have further aggressive treatment for her cancer. - Radiation to disease in spine is reasonable, will consider short, 2-3 day course of treatment - Recommend Hospice services. Discussed role of hospice, home services and that she will from her cancer. - Alternative therapy is an options, will try and connect family with local resources. Can be done while on hospice. - Will try and keep bowls moving without Lactulose, keep lactulose as reserve medication. Plan: []1. Will change Lactulose to TID PRN and start Biscodyl 10 mg bid, Senna 2 tabs bid. 2. Maintain Christy for urinary retention. 3. Consultation to Dr. Smith for XRT 4. Hospice consult 5. Will consult social work for guidance regarding alternative therapy. 6. They are considering consolation with [facility]. Would need to be done off hospice. In my opinion there is little incremental benefit to be gained. However, I am happy to arrange if the family feels another perspective will be helpful. 7. Have discussed DNR in the past and she has a hard time becoming comfortable, differed today but will come back to discussion. 9. A-fib. Continue metoprolol and Digoxin time 09:10 - 10:00 with patient and chart
[2016-09-06] MEDS: Docusate CAP* 100 MG PO SCH ×2 (10:50→21:16)
[2016-09-06] MEDS: Senna TAB PO SCH ×2 (10:50→21:16)
[2016-09-06] MEDS: Scopolamine 1.5 mg* PATCH TRANSDERM SCH (13:02)
[2016-09-06] MEDS: Scopolomine PATCH Remove* 1 NOTE MISC PATCH OFF SCH (13:02)
[2016-09-06] MEDS: Digoxin TAB* 0.125 MG PO SCH (16:51)
[2016-09-06] MEDS: Warfarin TAB(*) 5 MG PO SCH (16:51)
[2016-09-06] MEDS: LACTULOSE* 30 ML UDC PO PRN (21:16)
[2016-09-06] MEDS: Bisacodyl EC TAB* 5 MG PO SCH (21:16)
--- NOTE | 2016-09-06 22:34 | CONS ---
PALLIATIVE CARE CONSULTATION: DATE OF CONSULT: 09/06/16 PRIMARY CARE PHYSICIAN: Wai Powell MD REFERRING PHYSICIAN FOR CONSULTATION: Wai Powell MD HOSPITAL COURSE: This is a 70-year-old female with a past medical history of small cell lung cancer diagnosed in 2015 with metastasis to brain, liver, and multiple lytic bone lesions. The patient has undergone chemotherapy. She presented to the hospital on the with complaints of abdominal pain, constipation, and she was admitted to the Oncology service. On admission, the patient had an abdominal pelvis CT, which showed a large amount of retained stool with distention of the rectal vault. No metastatic disease to the lungs, liver, and osseous structures, significant distention of the urinary bladder, the hydronephrosis is right greater than the left which is likely related to bladder distention. Lumbar spine MRI: There are numerable enhancing lesions throughout the axial skeleton consistent with diffuse osseous metastatic disease. There is near complete replacement of the chest tube, vertebral body. There is no epidural extension or loss of vertebral body height. There is asymmetric enhancement of the left S1 nerve root, which may reflect extension of tumor into the nerve root, degenerative disk, and osteoarthritis. There is mild narrowing of the central canal at L4-L5 with associated neural foraminal narrowing. Multiple hepatic parenchymal lesions, also consistent with metastatic disease. The patient is getting an aggressive bowel regimen. On my encounter, her son and daughter are there and she is resting comfortably. They know with Dr. Powell earlier discussing goals of care. He did speak with them regarding hospice eligibility and a chemotherapy and seemed to be doing more harm than good and recommended hospice and he felt that her life expectancy was about 2 months. The family and the children want to respect what she wants and they are afraid to commit the hospice without getting a second opinion. They want to travel to [place] to get the second opinion. When speaking with the patient, it is very hard to get a clear understanding what she would want because she wants to be home. When discussing her code status, which has been another issue, she expresses that she does not want to be resuscitated, but the brace on her arm with a DNR on it, it caused a lot of anxiety to her. We discussed putting a sign outside the door, so it would not be visible. I discussed her poor prognosis and the limited chance of survival with being resuscitated and she does not want to go through with this, but is afraid to commit without discussing more with her . The patient is complaining of low back pain. She is fatigued. She is able to ambulate with a walker. She has had some nausea with a decrease in appetite. She denies any shortness of breath and as mentioned she has been having issues with constipation and urinary retention, otherwise remaining review of systems is negative. The patient is planning to meet with Dr. Smith today at 4 to discuss palliative radiation to the spine for pain control. PAST MEDICAL HISTORY: 1. 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 2. Atrial fibrillation. 3. History of gallstones. 4. Hyperlipidemia. 5. History of parathyroid cancer. 6. History of melanoma. 7. Constipation. 8. Chronic pain. 9. Nausea. 10. History of a DVT. MEDICATIONS: 1. Tylenol 650 mg every 6 hours as needed. 2. Bisacodyl 10 mg p.o. b.i.d. 3. Dexamethasone 4 mg p.o. daily. 4. Digoxin 0.125 mg daily. 5. Colace 100 mg p.o. b.i.d. 6. Lorazepam 0.5 mg p.o. t.i.d. as needed. 7. Lactulose p.o. t.i.d. p.r.n. 8. Metoprolol tartrate 25 mg p.o. q.6 hours. 9. Morphine 2 mg q.3 hours as needed. 10. Morphine extended release 30 mg p.o. t.i.d. 11. Zofran 8 mg every 8 hours. 12. Scopolamine patch. 13. Senna 2 tabs p.o. b.i.d. 14. Warfarin 5 mg daily. 15. Oxycodone 10 mg q.3 hours as needed. ALLERGIES: TETRACYCLINE, to help the rash. FAMILY HISTORY: No history of cancer. SOCIAL HISTORY: She lives at home with her who is her primary health care proxy. Her daughter is her secondary proxy. She has 4 grown children who have routinely taking care of her and coming to stay with her for 3 weeks at a time. The patient was initially DNR/DNI, but now has retracted that as a full code at this time until further discussion with her . She has a 50-pack year smoking history. No alcohol. REVIEW OF SYSTEMS: As mentioned in the HPI. PHYSICAL EXAM: Vital signs: Temp 98.7, pulse rate 118, respiratory rate 18, oxygen saturation 90% on room air, and blood pressure 122/58. General: A frail female, in no acute distress with her son and daughter at the bedside. HEENT: Pupils are equal and reactive. Anicteric. Head is normocephalic. Neck : Supple. No lymphadenopathy. Cardiac: Tachycardia. Irregularly irregular rate and rhythm. Soft systolic murmur. Respiratory: Poor aeration. Prolonged expiratory phase. No wheezes, rhonchi, or rales. Abdomen: Soft, mild distention. Extremities: No clubbing, cyanosis, or edema. Neurologic: Alert and oriented x3. No gross focal neurologic deficits. DIAGNOSTIC STUDIES/LAB DATA: White count on 11.6, hemoglobin 10.8, hematocrit 32, and platelets 526. INR 2.6. Sodium 136, potassium 3.6, chloride 101, bicarb 27, BUN 7, and creatinine 0.49. ASSESSMENT: This is a 70-year-old female with a past medical history of small cell lung cancer with metastasis to the brain, liver, and bone who presents to the hospital with urinary retention and constipation. In discussion with oncology, there is no other treatment options that would not further impair her quality of life. There was discussion of palliative radiation for her lytic bone lesions, which the patient and the family are meeting with Dr. Smith today. The family is hesitant to commit the hospice without getting a second opinion regarding further treatment options. They are interested in travelling to [place]. They want to see if it is possible for Dr. Powell to call another oncologist to discuss this to avoid a trip, but they are willing to travel. The patient seems to be willing to travel as well, although the patient seems to be aware of everything going on; however, I am concerned about the limited capacity, decision making that she has. She has a hard time articulating her wants and needs at this time. As it stands, her MOLST form is currently a full code. They are going to talk to the again and make sure that they want her to be a DNR/DNI. We discussed this at length. PATIENT TIME: More than 90 minutes was spent doing this consultation, more than half the time was spent in direct patient contact. Thank you for this consultation. I will follow along with you. CC: Wai Powell MD; Barry Bowens MD * [id number]/[facility] #: [id number] MTDD
[2016-09-07] MEDS: Metoprolol Tartrate TAB* 25 MG PO SCH ×5 (00:30→23:50)
[2016-09-07] MEDS: Senna TAB PO SCH ×2 (09:50→22:03)
[2016-09-07] MEDS: Docusate CAP* 100 MG PO SCH ×2 (09:50→22:06)
[2016-09-07] MEDS: Dexamethasone TAB* 4 MG PO SCH (09:51)
[2016-09-07] MEDS: Morphine TAB Extended Release (*) 30 MG TAB.ER PO SCH ×3 (09:51→21:59)
[2016-09-07] MEDS: Bisacodyl EC TAB* 5 MG PO SCH ×2 (09:55→22:19)
--- NOTE | 2016-09-07 13:06 | RAD ---
Indication: Lumbar spine metastases. CT of the spine and pelvis was performed for radiation therapy planning. Multiple lytic lesions are present throughout. Christy catheter is in place. IMPRESSION: CT of the lumbar spine and pelvis performed for radiation therapy planning.
[2016-09-07] MEDS: Morphine INJ* 2 MG/ML 1 ML SYRINGE IV PRN (15:24)
--- NOTE | 2016-09-07 16:17 | PN ---
Progress Note - Progress Note SOAP: Subjective: []Family requested meeting to discuss issues addressed this AM including hospice , question of second opinion at [facility] ([place]), radiation, and code status. Earnestine states lots of pain with CT simulation for RT - hard to lay on table. Pt. and family worried about travel and pain. Medications: Acetaminophen (Tylenol Tab*) 650 mg PO Q6H PRN PRN Reason: TEMP > 100.5 Bisacodyl (Dulcolax Ec Tab*) 10 mg PO BID [facility] Last Admin: 09/07/16 09:55 Dose: Not Given Dexamethasone (Decadron Tab*) 4 mg PO DAILY [facility] Last Admin: 09/07/16 09:51 Dose: 4 mg Digoxin (Lanoxin Tab*) 0.125 mg PO 1700 [facility] Last Admin: 09/06/16 16:51 Dose: 0.125 mg Docusate Sodium (Colace Cap*) 100 mg PO BID [facility] Last Admin: 09/07/16 09:50 Dose: 100 mg Heparin Sodium (Porcine) (Heparin Flush Port (Ivad)) 5 ml FLUSH DAILY [facility] PRN Reason: Protocol Last Admin: 09/07/16 09:51 Dose: 5 ml Lactulose (Lactulose*) 30 ml PO TID PRN PRN Reason: CONSTIPATION Last Admin: 09/06/16 21:16 Dose: 30 ml Lorazepam (Ativan Tab(*)) 0.5 mg PO TID PRN PRN Reason: NAUSEA Last Admin: 09/06/16 00:15 Dose: 0.5 mg Metoprolol Tartrate (Lopressor Tab*) 25 mg PO Q6H [facility] Last Admin: 09/07/16 15:21 Dose: 25 mg Morphine Sulfate (Ms Contin(*)) 30 mg PO TID [facility] Last Admin: 09/07/16 15:22 Dose: 30 mg Morphine Sulfate (Morphine Inj (Syringe)*) 2 mg IV Q3H PRN PRN Reason: PAIN Last Admin: 09/07/16 15:24 Dose: 2 mg Ondansetron HCl (Zofran Inj*) 8 mg IV Q8H PRN PRN Reason: NAUSEA Last Admin: 09/05/16 10:01 Dose: 8 mg Oxycodone HCl (Roxycodone Tab*) 10 mg PO Q3H PRN PRN Reason: PAIN Last Admin: 09/06/16 06:02 Dose: 10 mg Pharmacy Profile Note (Scopolomine Patch Remove*) 1 note PATCH OFF Q72H [facility] Last Admin: 09/06/16 13:02 Dose: 1 patch Scopolamine (Transderm-Scop 1.5 Mg Patch*) 1 patch TRANSDERM Q72H [facility] Last Admin: 09/06/16 13:02 Dose: 1 patch Senna (Senokot Tab*) 2 tab PO BID [facility] Last Admin: 09/07/16 09:50 Dose: 2 tab Warfarin Sodium (Coumadin Tab(*)) 5 mg PO DAILY@1700 [facility] PRN Reason: Protocol Last Admin: 09/06/16 16:51 Dose: 5 mg Objective: [] Vital Signs Temp Pulse Resp BP Pulse Ox 98.2 F 101 17 109/74 96 09/07/16 15:39 09/07/16 15:39 09/07/16 15:39 09/07/16 15:39 09/07/16 15:39 A&Ox3, slow to respond at times but very involved in conversation and decision making Somewhat uncomfortable sitting upright at side of bed and frequently changes position Full assessment deferred d/t counseling nature of visit Assessment/Plan: []70 yo with metastatic small cell lung cancer progressed through second line therapy and complicated by obstipation and urinary retention. Her performance status has declined over the last several weeks and decision was made earlier today to pursue palliative RT to spine and then transition to hospice at home. Unfortunately she struggled with her simulation, therefore we will delay discharge in order to provide IV pain meds prior to her radiation treatment every day. Following 4th dose on Sunday 09/10 AM she will be d/c'd home with plan for hospice sign on. In regards to the request for a second opinion, my biggest concern is Earnestine's comfort, however the family states they would like her records sent to [facility] where they will be reviewed for potential options. Earnestine signed a release and our office initiated that process today. In regards to her code status I spent a significant amount of time reviewing the recommendation for hospice, goals of therapy, and my concerns that with her current burden of disease, while I think it is unlikely, she may decline rapidly. Both Earnestine and her family had multiple questions regarding specifics about DNR/DNI as well as the dying process, all were answered to the best of my ability. Following counseling Earnestine requested DNR/DNI and the family was supportive of this. MOLST form was completed and signed by . >40 min visit with >50% face to face counseling []
[2016-09-07] MEDS: Digoxin TAB* 0.125 MG PO SCH (17:54)
[2016-09-07] MEDS: Warfarin TAB(*) 5 MG PO SCH (17:55)
--- NOTE | 2016-09-07 23:22 | DS ---
DISCHARGE SUMMARY: DATE OF ADMISSION: 09/01/16 DATE OF DISCHARGE: 09/07/16 ATTENDING PHYSICIAN: Mike Madera MD (dictated by Nikky Bailon NP) DISCHARGE DIAGNOSES: 1. Metastatic small cell lung cancer: Progressive thorough 2 lines of chemotherapy with extensive disease burden, plan for palliative radiation and then hospice. 2. Confusion: Likely related to disease burden, no further intervention at this time. 3. Atrial fibrillation: Stable with metoprolol and digoxin. DISCHARGE MEDICATIONS: 1. Acetaminophen 650 mg p.o. q.6 hours p.r.n. temp or pain. 2. Bisacodyl 10 mg p.o. b.i.d. p.r.n. constipation. 3. Morphine oral concentrate 20 mg/mL, 5 mg p.o. q.2 hours p.r.n. pain or shortness of breath. 4. Docusate sodium 200 mg p.o. b.i.d. p.r.n. constipation. 5. Warfarin 5 mg p.o. daily. 6. Lactulose 30 mL p.o. t.i.d. p.r.n. constipation. 7. Dexamethasone 4 mg p.o. daily. 8. Scopolamine patch 1.5 mg transdermally q.72 hours. 9. Morphine sulfate ER 30 mg p.o. b.i.d. 10. Senna 2 tabs p.o. b.i.d. p.r.n. constipation. 11. Zofran 4 mg p.o. q. 4 hours p.r.n. nausea. 12. Digoxin 0.125 mg p.o. q.5 p.m. 13. Metoprolol 25 mg p.o. q.6 hours. 14. Lorazepam 0.5 mg p.o. q.4 hours p.r.n. anxiety, agitation or nausea. HOSPITAL COURSE: Please see admission note for full H and P; however, briefly, Ms. Grimes is well known to our service due to her unfortunate diagnosis of small cell lung cancer diagnosed as metastatic in December 2015, with known BIOTECHNOLOGIST and bone involvement. In May 2016, she initiated chemotherapy complicated by DVT and unfortunately progressive BIOTECHNOLOGIST disease in July, transitioning to topotecan most recently on 07/26/16. Ms. Grimes was seen in our office on with severe constipation and concern for neurogenic bladder. She was admitted for workup including MRI of her spine and an abdomen and pelvis CT. Subsequent workup revealed extensive metastatic disease, concerning for progressive through recent transition of therapy. Unfortunately, while the disease is essentially stable in the organs, concern was for poor quality of life on therapy and consideration of hospice was discussed earlier on in the admission starting initially with Dr. Powell, the patient's primary oncologist, on 09/02/16. Subsequently, Earnestine has suffered from continued back pain and plan has been made to evaluate for radiation to her spine. Dr. Smith saw the patient today in consideration of a short course over 4 days. In terms of constipation, she has improved with lactulose and [address] Jha consulted with the family on 09/06/16; however, at that time the family was still considering a second opinion and concern for consideration of further lines of therapy. Today in discussion, the patient is involved in the plan of care and the family and patient agree that she would like to pursue radiation for pain control and subsequently sign on to hospice. The patient very much wants to go home, therefore, I coordinated with case management and social work for discharge this afternoon following initiation of radiation. She will receive daily radiation through 09/10/16. We will plan to sign on to hospice on Tuesday afternoon, pending approval which is currently in process. Plan of care was discussed with the family at length. TIME SPENT: Greater than 40 minutes spent with greater than 50% [id number] counseling. NIKKY BAILON NP CC: Barry Bowens MD; Dr. Trejo* [id number]/[facility] #: [id number] CHLOE
--- NOTE | 2016-09-08 03:48 | RADMED ---
RADIATION ONCOLOGY INPATIENT CONSULTATION NOTE: DATE OF SERVICE: 09/06/16 REFERRING PHYSICIAN: Wai Powell MD DIAGNOSIS: Metastatic small cell lung cancer, AJCC stage IV. HISTORY OF PRESENT ILLNESS: Earnestine Grimes is a 70-year-old woman with smoking history, who underwent low-dose CT screening, initially a low-risk pulmonary nodule was identified, but on subsequent followup, she was found to have increase in the right lung tumor and metastatic liver disease, which was confirmed on biopsy 06/04/16. She received systemic therapy with carboplatin and etoposide and subsequently with topotecan most recently, and presents with low back pain, obstipation, and urinary retention, restaging imaging shows widespread metastatic malignancy; brain metastasis, small and stable; extensive disease in the lumbosacral spine; and very widespread bony disease, and she is referred for consideration of palliative radiation therapy versus hospice. PAST MEDICAL HISTORY: Metastatic small cell lung cancer, history of atrial fibrillation, hyperlipidemia, melanoma, DVT, and parathyroid tumor. MEDICATIONS: 1. Tylenol. 2. Dulcolax. 3. Decadron. 4. Digoxin. 5. Colace. 6. Heparin. 7. Lactulose. 8. Ativan. 9. Lopressor. 10. MS Contin. 11. Morphine. 12. Zofran. 13. Oxycodone. 14. Scopolamine. 15. Senna. 16. Coumadin. ALLERGIES: TETRACYCLINE. FAMILY HISTORY: Denies malignancy. SOCIAL HISTORY: She is . She is accompanied today by 2 supportive children. She has been a smoker. PHYSICAL EXAM: Vital Signs: Temperature 98.1, pulse rate 111, respiratory rate 14, oxygen saturation 93%, and blood pressure 96/56. General: She is disoriented and confused, and the majority of history comes from her children who have noted waxing and waning acuity and mental status. HEENT: Normocephalic, atraumatic. Sclerae are anicteric. Neck: Supple. Full range of motion. Midline trachea. No mass palpable in the neck. Lungs: Symmetric air entry. Cardiovascular: S1, S2. Abdomen: Mildly tender. Extremities: No peripheral edema. Musculoskeletal: Mild tenderness to palpation over the lower lumbar spine and sacrum. PATHOLOGY AND RADIOLOGY: Reviewed as in the history of present illness. ASSESSMENT AND PLAN: Earnestine Grimes is a 70-year-old woman with progressive small cell lung cancer, admitted for pain control, primarily related to extensive disease in the lumbosacral spine. I did review her history as well as pathologic and radiographic findings, discussed at some length with the patient and her family, as they are already well informed and familiar. They have also had consultation for consideration of hospice services, and understand that that is an option either now, or following a short course of palliative radiation therapy to the spine. With regard to that treatment, I reviewed the logistics and rationale, risks, benefits, and alternatives as well as the acute and long-term frequent and uncommon toxicities. Her disease extent is significant with involvement of most of the visualized bones on her scans. Designing a palliative treatment that is likely to provide meaningful pain control, but would only deliver radiation to limited normal tissues to reduce side effects could be a challenge. Typically in that situation, fractionation as opposed to single fraction palliation may pose less risk of side effects in my experience. Her main priority right now is getting out of the hospital. I offered simulation and treatment planning and short-course radiation, which could be completed by the end of the week versus single fraction palliation, which would likely be to a more limited field, and perhaps less likely to help with pain problems, but would be more expeditious. I also frankly explained that radiation therapy being a localized treatment is unlikely to affect the overall trajectory of her disease, and proceeding to hospice without radiation would not be unreasonable. They would like some time to think and consider options, and I will follow up with them in the morning. Thank you for giving me the opportunity to participate in the care of this very pleasant patient. ADDENDUM: After further discussion, she is interested to proceed with palliative radiation therapy and did sign informed consent. Will proceed as soon as possible. [id number]/[facility] #: [id number] [facility]
[2016-09-08] MEDS: Metoprolol Tartrate TAB* 25 MG PO SCH ×4 (05:44→23:07)
[2016-09-08] MEDS: Morphine TAB Extended Release (*) 30 MG TAB.ER PO SCH ×3 (07:31→20:31)
[2016-09-08] MEDS: Docusate CAP* 100 MG PO SCH ×2 (07:32→20:31)
[2016-09-08] MEDS: Morphine INJ* 2 MG/ML 1 ML SYRINGE IV PRN (07:32)
[2016-09-08] MEDS: Bisacodyl EC TAB* 5 MG PO SCH ×3 (09:25→20:30)
[2016-09-08] MEDS: Senna TAB PO SCH ×2 (09:34→20:31)
[2016-09-08] MEDS: Dexamethasone TAB* 4 MG PO SCH (09:34)
--- NOTE | 2016-09-08 12:40 | PN ---
Progress Note - Progress Note SOAP: Subjective: []Feeling OK this AM. Pain was well controlled with IV morphine during RT this AM. No HAs and denies severe abd. pain. Didn't have a good night again, fell asleep but then was woken up and couldn't get back to bed. Medications: Acetaminophen (Tylenol Tab*) 650 mg PO Q6H PRN PRN Reason: TEMP > 100.5 Bisacodyl (Dulcolax Ec Tab*) 10 mg PO BID [facility] Last Admin: 09/08/16 09:25 Dose: Not Given Dexamethasone (Decadron Tab*) 4 mg PO DAILY [facility] Last Admin: 09/08/16 09:34 Dose: 4 mg Digoxin (Lanoxin Tab*) 0.125 mg PO 1700 [facility] Last Admin: 09/07/16 17:54 Dose: 0.125 mg Docusate Sodium (Colace Cap*) 100 mg PO BID [facility] Last Admin: 09/08/16 07:32 Dose: 100 mg Heparin Sodium (Porcine) (Heparin Flush Port (Ivad)) 5 ml FLUSH DAILY [facility] PRN Reason: Protocol Last Admin: 09/08/16 07:32 Dose: 5 ml Lactulose (Lactulose*) 30 ml PO TID PRN PRN Reason: CONSTIPATION Last Admin: 09/06/16 21:16 Dose: 30 ml Lorazepam (Ativan Tab(*)) 0.5 mg PO TID PRN PRN Reason: NAUSEA Last Admin: 09/06/16 00:15 Dose: 0.5 mg Metoprolol Tartrate (Lopressor Tab*) 25 mg PO Q6H [facility] Last Admin: 09/08/16 05:44 Dose: 25 mg Morphine Sulfate (Ms Contin(*)) 30 mg PO TID [facility] Last Admin: 09/08/16 07:31 Dose: 30 mg Morphine Sulfate (Morphine Inj (Syringe)*) 2 mg IV Q3H PRN PRN Reason: PAIN Last Admin: 09/08/16 07:32 Dose: 2 mg Ondansetron HCl (Zofran Inj*) 8 mg IV Q8H PRN PRN Reason: NAUSEA Last Admin: 09/05/16 10:01 Dose: 8 mg Oxycodone HCl (Roxycodone Tab*) 10 mg PO Q3H PRN PRN Reason: PAIN Last Admin: 09/06/16 06:02 Dose: 10 mg Pharmacy Profile Note (Scopolomine Patch Remove*) 1 note PATCH OFF Q72H [facility] Last Admin: 09/06/16 13:02 Dose: 1 patch Scopolamine (Transderm-Scop 1.5 Mg Patch*) 1 patch TRANSDERM Q72H [facility] Last Admin: 09/06/16 13:02 Dose: 1 patch Senna (Senokot Tab*) 2 tab PO BID [facility] Last Admin: 09/08/16 09:34 Dose: 2 tab Warfarin Sodium (Coumadin Tab(*)) 5 mg PO DAILY@1700 [facility] PRN Reason: Protocol Last Admin: 09/07/16 17:55 Dose: 5 mg Objective: [] Vital Signs Temp Pulse Resp BP Pulse Ox 98.4 F 111 16 112/58 99 09/08/16 07:55 09/08/16 07:55 09/08/16 09:31 09/08/16 07:55 09/08/16 07:55 A&Ox3, EOMI, MIXON, neuro grossly non-focal today HRI, tachy LS clear, resp. even and non-labored +BS, abd. soft and non-tender Assessment: []70 yo f with metastatic SCLC currently receiving palliative RT to spine with plan for home with hospice. Plan: []1. RT: cont. IV pain meds prior to tx. 2. Reslessness/Insomnia: trial Restoril tonight, can use Ativan as well, attempt to avoid interruptions DNR/DNI Discharge Tuesday after RT with hospice @ home
[2016-09-08] MEDS: LACTULOSE* 30 ML UDC PO PRN (15:00)
[2016-09-08] MEDS: Warfarin TAB(*) 5 MG PO SCH (17:50)
[2016-09-08] MEDS: Digoxin TAB* 0.125 MG PO SCH (17:50)
[2016-09-08] MEDS: Temazepam CAP* 15 MG PO SCH ×2 (20:32→22:46)
[2016-09-09] MEDS: Metoprolol Tartrate TAB* 25 MG PO SCH ×3 (06:18→17:48)
[2016-09-09] MEDS: Morphine INJ* 2 MG/ML 1 ML SYRINGE IV PRN (07:54)
[2016-09-09] MEDS: Morphine TAB Extended Release (*) 30 MG TAB.ER PO SCH ×2 (09:51→22:08)
[2016-09-09] MEDS: Docusate CAP* 100 MG PO SCH ×2 (09:52→22:08)
[2016-09-09] MEDS: Senna TAB PO SCH ×2 (09:52→22:08)
[2016-09-09] MEDS: Bisacodyl EC TAB* 5 MG PO SCH ×2 (09:52→21:59)
[2016-09-09] MEDS: Dexamethasone TAB* 4 MG PO SCH (09:52)
--- NOTE | 2016-09-09 11:37 | PN ---
Progress Note - Progress Note SOAP: Subjective: []Feeling OK this AM. Pain controlled around 3-4/10. RT is going OK. Denies chest pain and pressure. Family denies questions. Medications: Acetaminophen (Tylenol Tab*) 650 mg PO Q6H PRN PRN Reason: TEMP > 100.5 Bisacodyl (Dulcolax Ec Tab*) 10 mg PO BID [facility] Last Admin: 09/09/16 09:52 Dose: Not Given Dexamethasone (Decadron Tab*) 4 mg PO DAILY [facility] Last Admin: 09/09/16 09:52 Dose: 4 mg Digoxin (Lanoxin Tab*) 0.125 mg PO 1700 [facility] Last Admin: 09/08/16 17:50 Dose: 0.125 mg Docusate Sodium (Colace Cap*) 100 mg PO BID [facility] Last Admin: 09/09/16 09:52 Dose: 100 mg Heparin Sodium (Porcine) (Heparin Flush Port (Ivad)) 5 ml FLUSH DAILY [facility] PRN Reason: Protocol Last Admin: 09/09/16 09:56 Dose: 5 ml Lactulose (Lactulose*) 30 ml PO TID PRN PRN Reason: CONSTIPATION Last Admin: 09/08/16 15:00 Dose: 30 ml Lorazepam (Ativan Tab(*)) 0.5 mg PO TID PRN PRN Reason: NAUSEA Last Admin: 09/06/16 00:15 Dose: 0.5 mg Metoprolol Tartrate (Lopressor Tab*) 25 mg PO Q6H [facility] Last Admin: 09/09/16 06:18 Dose: 25 mg Morphine Sulfate (Ms Contin(*)) 30 mg PO TID [facility] Last Admin: 09/09/16 09:51 Dose: 30 mg Morphine Sulfate (Morphine Inj (Syringe)*) 2 mg IV Q3H PRN PRN Reason: PAIN Last Admin: 09/09/16 07:54 Dose: 2 mg Ondansetron HCl (Zofran Inj*) 8 mg IV Q8H PRN PRN Reason: NAUSEA Last Admin: 09/05/16 10:01 Dose: 8 mg Oxycodone HCl (Roxycodone Tab*) 10 mg PO Q3H PRN PRN Reason: PAIN Last Admin: 09/06/16 06:02 Dose: 10 mg Pharmacy Profile Note (Scopolomine Patch Remove*) 1 note PATCH OFF Q72H [facility] Last Admin: 09/06/16 13:02 Dose: 1 patch Scopolamine (Transderm-Scop 1.5 Mg Patch*) 1 patch TRANSDERM Q72H [facility] Last Admin: 09/06/16 13:02 Dose: 1 patch Senna (Senokot Tab*) 2 tab PO BID [facility] Last Admin: 09/09/16 09:52 Dose: 2 tab Temazepam (Restoril Cap*) 15 mg PO BEDTIME [facility] Last Admin: 09/08/16 22:46 Dose: 15 mg Warfarin Sodium (Coumadin Tab(*)) 5 mg PO DAILY@1700 [facility] PRN Reason: Protocol Last Admin: 09/08/16 17:50 Dose: 5 mg Objective: [] Vital Signs Temp Pulse Resp BP Pulse Ox 98.5 F 124 18 108/74 95 09/09/16 07:55 09/09/16 07:55 09/09/16 09:51 09/09/16 07:55 09/09/16 07:55 Alert, disoriented to situation, however communicating effectively. HRI, tachy LS clear Assessment: []70 yo f with end stage SCLC currently completing palliative RT to the spine and plan for d/c home with hospice tomorrow. Plan: []Cont. IV morphine prior to RT Cont. PRN laxatives Check INR tomorrow AM prior to d/c D/C home tomorrow AM after RT, OK for family to transfer home
[2016-09-09] MEDS: Scopolamine 1.5 mg* PATCH TRANSDERM SCH (13:06)
[2016-09-09] MEDS: Scopolomine PATCH Remove* 1 NOTE MISC PATCH OFF SCH (13:09)
[2016-09-09] MEDS: Warfarin TAB(*) 5 MG PO SCH (17:47)
[2016-09-09] MEDS: Digoxin TAB* 0.125 MG PO SCH (17:47)
[2016-09-09] MEDS: Temazepam CAP* 15 MG PO SCH (22:08)
[2016-09-10] MEDS: Metoprolol Tartrate TAB* 25 MG PO SCH ×3 (00:07→12:04)
[2016-09-10] MEDS: oxyCODONE TAB* 5 MG TAB PO PRN (02:46)
--- NOTE | 2016-09-10 03:37 | DS ---
DISCHARGE SUMMARY: DATE OF ADMISSION: 09/04/16 DATE OF ANTICIPATED DISCHARGE: 09/10/16 ADDENDUM: Addendum to SUJATHA Ferrer's discharge summary under Dr. Ester Chong MD, the attending. Ms. Grimes was held over in the hospital for specific needs including the need for intravenous IV morphine for her radiation therapy for comfort issues and she was unable to take p.o. narcotics. In addition to that, she did need temazepam for her sleep and was unable to sleep without it. In addition, she will require a hospital bed, wheelchair, commode, and application pad for the bed. The hospital bed will be needed for the patient to be allowed to have the head off the bed elevated due to her lung cancer. Wheelchair will be needed for instability to ambulate related to her declining condition and shortness of breath, and commode to be kept at bedside at home secondary to shortness of breath. The intention is for her to be discharged in the morning given the INR value and if her vital signs are stable. Please include this as part of the discharge summary that was previously dictated by SUJATHA Ferrer. In addition, we will need to continue laxatives in an aggressive state as she has had significant constipation issues in the past and we will discharge her home after her radiation therapy is complete. These discharge plans have been discussed with the family and they are in agreement for her discharge tomorrow. She will be completing her palliative radiation therapy to the spine and will be signed out to home hospice tomorrow. YUVAL ESCAMILLA [id number]/[facility] #: [id number] MTDD
[2016-09-10] MEDS: Dexamethasone TAB* 4 MG PO SCH (08:19)
[2016-09-10] MEDS: Bisacodyl EC TAB* 5 MG PO SCH (08:19)
[2016-09-10] MEDS: Morphine TAB Extended Release (*) 30 MG TAB.ER PO SCH (08:20)
[2016-09-10] MEDS: Docusate CAP* 100 MG PO SCH (08:20)
[2016-09-10] MEDS: Senna TAB PO SCH (08:21)
[2016-09-10 10:55] VITALS: BP 108/79
== END 2016-09-10 12:30 | disposition hospice, home (50) | DRG 181 ==
LOC: MEDTELE 13:57 → SSU 09-04 03:31 → OBSVTOIN 09-04 08:02
PROVIDERS: ADMIT Internal Medicine Hematology & Oncology; ATTEND Internal Medicine Hematology & Oncology
PROC: DP0C1ZZ Beam Radiation of Other Bone using Photons 1 - 10 MeV (ICD-10-PCS; principal; 2016-09-07)
DX: C34.90 Malignant neoplasm of unspecified part of unspecified bronchus or lung (principal); C79.31 Secondary malignant neoplasm of brain; C78.7 Secondary malignant neoplasm of liver and intrahepatic bile duct; I48.91 Unspecified atrial fibrillation; C79.51 Secondary malignant neoplasm of bone; R41.0 Disorientation, unspecified; G89.3 Neoplasm related pain (acute) (chronic); G47.00 Insomnia, unspecified; E78.5 Hyperlipidemia, unspecified; K59.00 Constipation, unspecified; F17.210 Nicotine dependence, cigarettes, uncomplicated; Z85.820 Personal history of malignant melanoma of skin; Z85.850 Personal history of malignant neoplasm of thyroid; Z88.8 Allergy status to other drugs, medicaments and biological substances; Z79.01 Long term (current) use of anticoagulants; Z79.1 Long term (current) use of non-steroidal anti-inflammatories (NSAID); Z79.891 Long term (current) use of opiate analgesic; Z79.899 Other long term (current) drug therapy; Z66 Do not resuscitate; Z86.718 Personal history of other venous thrombosis and embolism; Z86.711 Personal history of pulmonary embolism
CPT/HCPCS: 36415; 36591; 72157; 72158; 74020; 74176; 77014; 77280; 77307; 77334; 77336; 77387; 77412; 77417; 80053; 85025; 85027; 85610; 87086; 93005; 96360; 96365; 96366; 96375; 99214; 99220; 99232; 99233; 99238; 99239; 99406; A9270-GY; A9579; G0378; G0463; G8978-GP-CJ; G8979-GP-CI; G8980-GP-CJ; J1642; J2270; J2405